=== PATIENT | female | born 2000 | race Caucasian/White ===

== ENCOUNTER 2022-03-25 01:50 | Emergency (ER) | payer OTHER ==
[~2022-03-25] VITALS: Ht 177.8 cm; Wt 108.9 kg
--- NOTE | 2022-03-25 02:20 | NUR ---
Dr. Heart at bedside. MSE in progress.
[2022-03-25] MEDS ORDERED: OXYCODONE/APAP 5-325 MG TABLET PO ONE (02:30)
[2022-03-25] MEDS ORDERED: OXYCODONE/APAP 5-325 MG TABLET ONE (02:56)
[2022-03-25] MEDS ORDERED: OXYC-128 PO (03:07)
--- NOTE | 2022-03-25 03:13 | NUR ---
Patient discharged to home in stable condition. A/O x4. NAD noted. Ambulatory with a steady gait. All belongings with patient. Written and verbal after care instructions given. Patient verbalizes understanding of instructions. Stressed follow up or return to ER for worsening s/s.
[2022-03-25 03:28] VITALS: BP 109/67
== END 2022-03-25 03:13 | disposition home or self-care (01) ==
LOC: ER 02:30
DX: J11.1 Influenza due to unidentified influenza virus with other respiratory manifestations (principal); E06.3 Autoimmune thyroiditis; R43.8 Other disturbances of smell and taste; Z20.822 Contact with and (suspected) exposure to COVID-19; Z72.0 Tobacco use
CPT/HCPCS: A4663

== ENCOUNTER 2022-03-25 01:52 | Emergency (ER) | payer SELFPAY ==
[2022-03-25] MEDS ORDERED: OXYC-128 PO (03:07)
== END 2022-03-25 01:55 | disposition left against medical advice (07) ==
LOC: ER 01:55
DX: Z53.21 Procedure and treatment not carried out due to patient leaving prior to being seen by health care provider (principal)

== ENCOUNTER 2022-03-25 01:53 | Emergency (ER) | payer SELFPAY ==
[2022-03-25] MEDS ORDERED: OXYC-128 PO (03:07)
== END 2022-03-25 02:00 | disposition left against medical advice (07) ==
LOC: ER 01:55
DX: Z53.21 Procedure and treatment not carried out due to patient leaving prior to being seen by health care provider (principal)